=== PATIENT | female | born 1965 | race Caucasian/White ===

== ENCOUNTER 2019-11-13 10:21 | Emergency (ER) | payer SELFPAY ==
[2019-11-13 10:41] VITALS: BP 127/87
== END 2019-11-13 13:30 | disposition left against medical advice (07) ==
LOC: ED 10:21
DX: Z20.828 Contact with and (suspected) exposure to other viral communicable diseases (principal); Z53.21 Procedure and treatment not carried out due to patient leaving prior to being seen by health care provider